=== PATIENT | male | born 1945 | race Caucasian/White ===

== ENCOUNTER 2024-01-01 16:31 | Observation (INO) | payer MEDICARE, SELFPAY ==
--- NOTE | ~2024-01-01 | XR_ITS ---
XR chest 1V portable Ordering provider: Shivani Parra APRN History: 78 years Male with . weakness, blood in stool, hx lung cx with mets . Comparison: None. FINDINGS: MEDIASTINUM: The cardiac silhouette is not enlarged. Postoperative changes in the mediastinum. Promin ent both [place]. LUNGS: No effusions or pneumothorax. Opacification and the left upper lobe area suggestive of pneumon ia. Atelectasis is not excluded. Clinical correlation advised. Follow-up to resolution is advised. OTHER: No free air under the diaphragm. IMPRESSION: Left upper lobe pneumonia. Follow-up to resolution advised to exclude underlying nodules. Reviewed, dictated and finalized at location A. IMPRESSION: Left upper lobe pneumonia. Follow-up to resolution advised to exclude underlyin g nodules.
[2024-01-01 16:37] VITALS: BP 67/41; PULSE 72; RESP 16; TEMP 36.7; O2SAT 94
--- NOTE | 2024-01-01 16:48 | ECG_ITS ---
Test Date: 2024-01-01 16:56:46 Measurements Intervals [place] Rate: 90 P: 66 NC: 170 QRS: 105 QRSD: 106 T: 54 QT: 385 QTc: 472 Interpretive Statements SINUS RHYTHM RIGHT AXIS DEVIATION MINIMAL Q WAVES- INFERIOR LEADS BASELINE ARTIFACT- I, II, III, AVR, AVL, AVF, V1-V6 BORDERLINE ECG No previous ECG available for comparison Electronically Signed On 01-01-2024 19:27:02 CDT by Alfred Teran D.O.
[2024-01-01 17:17] LABS: Basophils Absolute Auto 0.1 K/mm3 (0.0-0.1); Basophils Percent Auto 0.5 % (0.2-1.2); Eosinophils Absolute Auto 0.2 K/mm3 (0-0.3); Eosinophils Percent Auto 2.2 % (0-4.4); Hematocrit 29.5 % (42.0-52.0); Hemoglobin 9.1 g/dL (14.0-18.0); Immature Granulocyte Absolute 0.12 K/mm3 (0.00-0.031); Immature Granulocyte Percent A 1.1 % (0-0.5); Lymphocytes Absolute Auto 0.61 K/mm3 (0.9-3.2); Lymphocytes Percent Auto 5.7 % (18.3-44.2); Mean Corpuscular HGB Conc 30.8 g/dl (32-36); Mean Corpuscular Hemoglobin 28.3 pg (26-34); Mean Corpuscular Volume 91.9 fl (80-100); Mean Platelet Volume 9.8 fl (7.4-10.4); Monocytes Absolute Auto 0.6 K/mm3 (0.1-0.6); Monocytes Percent Auto 5.9 % (2.6-8.5); Neutrophils Percent Auto 84.6 % (45.5-73.1); Platelet Count Result 258 k/mm3 (150-375); Red Blood Count 3.21 M/mm3 (4.6-6.20); Red Cell Distribution Width 16.7 % (11.5-14.5); White Blood Count 10.6 K/mm3 (4.5-10.0)
[2024-01-01] MEDS: SODIUM CHLORIDE 0.9% IV 1,000 ML 999 ML IV CONT ×2 (17:31→18:20)
[2024-01-01 17:32] LABS: Alanine Aminotransferase 29 U/L (6-50); Alkaline Phosphatase 163 U/L (38-126); Anion Gap 17 mmol/L (4-12); Aspartate Amino Transferase 44 U/L (17-59); Bilirubin,Total 1.2 mg/dL (0.2-1.3); Blood Urea Nitrogen 35 mg/dL (9-20); Calcium 8.7 mg/dL (8.4-10.2); Carbon Dioxide 17 mmol/L (22-30); Chloride 99 mmol/L (98-107); Estimated CRCL calculation 22 ml/min; Estimated Glomerular Filt Rate 25; Glucose 155 mg/dL (65-110); Potassium 4.2 mmol/L (3.4-5.0); Sodium 133 mmol/L (137-145)
--- NOTE | 2024-01-01 18:07 | ED.GENADULT ---
HPI - General Adult General Chief complaint: Weakness Stated complaint: gen. weakness, dark stools Time Seen by Provider: 01/01/24 16:57 History of Present Illness HPI narrative: Patient is a 78-year-old male who presents to the ER with weakness. Patient has known metastatic lung cancer to the brain. He has a pathologic fracture of the left humeral head that has not healed. He was initially diagnosed in [place] in September when he had a fall. He recently flew back in November after receiving immunotherapy treatments. After arriving in [place] immediately went to [facility] from the airport because he had a nephrostomy tube in and. Nephric hematoma as well as an obstructing kidney stone. Patient was recently [facility] after discharge. Patient reports chronic anemia with a hemoglobin around 8. He has not been able to have chemotherapy treatments/immunotherapy treatments due to persistent illness. He did have 1 brain tumor excised and then was receiving targeted radiation to 2 other tumors. Patient currently lives at home with his girlfriend. His children live in [place]. Patient does report that he has had some darker stools than typical today. Related Data Home Medications Medication Instructions Recorded Confirmed amlodipine 5 mg tablet 5 mg PO DAILY 12/20/23 12/20/23 aspirin 81 mg chewable tablet 81 mg PO DAILY 12/20/23 12/20/23 atorvastatin 40 mg tablet 40 mg PO DAILY 12/20/23 12/20/23 carvedilol 12.5 mg tablet (Coreg) 12.5 mg PO BIDWM 12/20/23 12/21/23 dapagliflozin propanediol 10 mg 10 mg PO DAILY 12/20/23 12/20/23 tablet ferrous sulfate 325 mg (65 mg 325 mg PO BID 12/20/23 12/20/23 iron) tablet loperamide 2 mg capsule 2 mg PO QID PRN Diarrhea 12/20/23 12/20/23 miconazole nitrate 2 % topical 1 applic topical BID 12/20/23 12/20/23 powder (Antifungal (miconazole)) acetaminophen 325 mg tablet 650 mg PO Q4H PRN Pain, headaches 12/21/23 12/21/23 or fever Allergies Allergy/AdvReac Type Severity Reaction Status Date / Time No Known Allergies Allergy Verified 01/01/24 16:36 Review of Systems Review of Systems: All systems reviewed & are unremarkable except as noted in HPI and below PMFSH Past Medical History Medical History (Updated 01/01/24 @ 18:56 by Raghav Jones MD) A-fib Bilateral nephrolithiasis Cancer cachexia CKD (chronic kidney disease) stage 3, GFR 30-59 ml/min Impaired mobility and ADLs NSCLC metastatic to bone NSCLC metastatic to brain Recurrent UTI Type 2 diabetes mellitus Social History Social History Smoking packs per day: 1 Smoking cigarettes per day: 20.0 Years smoked: 50 Smoking pack-years: 50.00 Smoking status: Former smoker Tobacco type: cigarettes Second hand tobacco smoke exposure: No Smoking end date: 10/02/23 Alcohol intake: former Substance use: never Do You Feel Safe in your Home?: Yes Lack of Transportation: No Lack of Food: Never True Current Housing: I Have Housing Concerned About Future Housing: No Difficulty Paying Gas/Electric Bills: No Difficulty Paying for Meds: No Currently Unemployed: No Education: High School Diploma/GED Difficulty w/ Childcare or Family Care: No Living arrangements: with family Occupation/Education: retired Gender identity (if verbalized by the patient): Male Sexual Orientation (if Verbalized by the Patient): Straight or Heterosexual Spiritual care concerns: Yes (church) Agree to blood products: Yes Exam Narrative: GENERAL: Chronically ill-appearing, malnourished, and in no acute distress. HEAD: Normocephalic, atraumatic. EYES: PERRL and EOMI. ENT: Mucous membranes moist. CHEST: Clear to auscultation. No respiratory distress. HEART: Regular rate and rhythm. Normal peripheral pulses. ABDOMEN: Soft, nontender, nondistended. Faintly Hemoccult positive stool without gross blood. EXTREMITIES: Normal range o
[2024-01-01 18:20] VITALS: BP 85/45; PULSE 88; RESP 16; O2SAT 100
--- NOTE | 2024-01-01 19:12 | PC.NURSE ---
pt unable to urinate at this time.
--- NOTE | 2024-01-01 20:09 | PC.NURSE ---
1953: Spoke with ER nurse giving report for this patient. Questioned collection of urinalysis, as specimen has not been collected. Original order placed at 1648. Nurse states unaware what previous nurse had completed and referred to several other orders being discontinued. Per current orders urinalysis is still active. ER nurse to speak with ER physician to verify status and/or need for urinalysis. At this time patient is to undergo comfort care transitioning to hospice tomorrow.
--- NOTE | 2024-01-01 20:20 | ADMGEN ---
This patient, Jason White, was admitted to Medical Room 341-01. Patient/family oriented to hospital policies and general routines including ID bracelet, bed and alarms, visiting hours, pain management, procedures, bathroom and other care routines, personal items, smoking policy, room service/diet, and visiting hours. Information on how to activate the Rapid Response Team has been discussed. Patient/Family are encouraged to report perceived risks to care and to ask questions if they do not understand what they are told or what they should do.
--- NOTE | 2024-01-01 20:46 | PM.IMHP ---
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 He lives with his partner who he presents with to [place] ER today. Chief complaint of weakness. 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 Has taken 3 doses already. ER evaluation demonstrated blood pressure 67/41 improving to 85/45 after 2 L normal saline bolus. White blood cell count 10.6, hemoglobin 9.1, serum creatinine 2.5, last 1.1 on 12/21/2023. He also complained of a dry cough for a few days. Chest x-ray demonstrating left upper lobe pneumonia. The patient's child was on speaker phone who lives in [place], discussion held with the patient, his girlfriend present and ER physician Dr. Jones. Patient requested comfort measures except for completing a 7 day course of ciprofloxacin for UTI and fluids throughout the night. He wishes to return home with hospice care. The global technical writer confirmed these wishes with the patient and girlfriend present. Review of Systems Review of Systems: All systems reviewed & are unremarkable except as noted in HPI and below (Subjective) PMFSH Past Medical History Medical History (Updated 01/01/24 @ 20:53 by Veronika Pop MD) A-fib Bilateral nephrolithiasis Cancer cachexia CKD (chronic kidney disease) stage 3, GFR 30-59 ml/min Impaired mobility and ADLs NSCLC metastatic to bone NSCLC metastatic to brain Recurrent UTI Type 2 diabetes mellitus Social History Social History Smoking packs per day: 1 Smoking cigarettes per day: 20.0 Years smoked: 50 Smoking pack-years: 50.00 Smoking status: Former smoker Tobacco type: cigarettes Second hand tobacco smoke exposure: No Smoking end date: 10/02/23 Alcohol intake: former Substance use: never Do You Feel Safe in your Home?: Yes Lack of Transportation: No Lack of Food: Never True Current Housing: I Have Housing Concerned About Future Housing: No Difficulty Paying Gas/Electric Bills: No Difficulty Paying for Meds: No Currently Unemployed: No Education: High School Diploma/GED Difficulty w/ Childcare or Family Care: No Living arrangements: with family Occupation/Education: retired Gender identity (if verbalized by the patient): Male Sexual Orientation (if Verbalized by the Patient): Straight or Heterosexual Spiritual care concerns: Yes (holiness) Agree to blood products: Yes Meds Home Medications and Allergies Home Medications Medication Instructions Recorded Confirmed Type amlodipine 5 mg tablet 5 mg PO DAILY 12/20/23 12/20/23 History aspirin 81 mg chewable tablet 81 mg PO DAILY 12/20/23 12/20/23 History atorvastatin 40 mg tablet 40 mg PO DAILY 12/20/23 12/20/23 History carvedilol 12.5 mg tablet (Coreg) 12.5 mg PO BIDWM 12/20/23 12/21/23 History dapagliflozin propanediol 10 mg 10 mg PO DAILY 12/20/23 12/20/23 History tablet ferrous sulfate 325 mg (65 mg 325 mg PO BID 12/20/23 12/20/23 History iron) tablet loperamide 2 mg capsule 2 mg PO QID PRN Diarrhea 12/20/23 12/20/23 History miconazole nitrate 2 % topical 1 applic topical BID 12/20/23 12/20/23 History powder (Antifungal (miconazole)) acetaminophen 325 mg tablet 650 mg PO Q4H PRN Pain, headaches 12/21/23 12/21/23 History or fever mirtazapine 15 mg tablet (Remeron) 7.5 mg PO HS 30 days #15 tabs 12/28/23 Rx mirabegron 25 mg tablet,extended 25 mg PO DAILY 30 days #30 tabs 12/29/23 Rx release 24 hr (Myrbetriq) potassium chloride 20 mEq 20 meq PO DAILY 30 days #30 tabs 12/29/23 Rx tablet,extended release tamsulosin 0.4 mg capsule (Flomax) 0.4 mg PO QPM #30 caps 12/29/23 Rx Allergies Allergy/AdvReac Type Severity Reaction Sta
[2024-01-01 20:56] LABS: Add Urine Microscopic? YES; Appearance Urine Turbid (Clear); Bacteria Urine 1+ /hpf; Bilirubin Urine 1+ (Negative); Blood Urine 3+ (Negative); Color Urine Dark Yellow (Yellow); Glucose Urine UA Trace mg/dL (Negative); Ketones Urine Negative (Negative); Leukocyte Esterase Ur 2+ LEU/UL (Negative); Need Manual Microscopic Reviewed; Nitrate Urine Negative (Negative); Non Pathogenic Casts >20; Protein Urine 4+ mg/dL (Negative); RBC Urine >100 /hpf (0-2); Specific Grav Ur 1.021 (1.001-1.035); Squamous Epithelial Cell Urine Moderate /hpf (Few); WBC Urine >100 /hpf (0-3); pH Urine 5.5 (5.0-9.0)
[2024-01-01 21:02] LABS: Glucose Point of Care 124 mg/dl (65-105)
[2024-01-01] MEDS: CIPROFLOXACIN 500 MG TAB PO (21:04)
[2024-01-01] MEDS: ONDANSETRON INJ 4 MG/2 ML VIAL IV PUSH (21:04)
[2024-01-01] MEDS: HYDROcodone/acetaminophen (*CRX) 5-325 MG TABLET 1 TAB PO (21:04)
[2024-01-01] MEDS: SODIUM CHLORIDE 0.9% IV 1,000 ML 125 ML IV CONT (21:05)
[2024-01-01 21:41] VITALS: BP 88/55; PULSE 94; RESP 18; TEMP 36.8; O2SAT 99
[2024-01-02 05:47] VITALS: BP 92/54; PULSE 75; RESP 16; TEMP 36.5; O2SAT 100
--- NOTE | 2024-01-02 06:30 | PCCCNOTE ---
Called to Ed for hospice referral. Pt is alert and oriented. After speaking with pt and significant other Melia Leong [phone] a hospice referral was made to [facility]. Contact made hospice will contact pt and Melia to schedule a meeting. 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
[2024-01-02] MEDS: SODIUM CHLORIDE 0.9% IV 1,000 ML 125 ML IV CONT ×3 (06:32→20:11)
[2024-01-02 08:00] VITALS: O2SAT 100
[2024-01-02 09:01] LABS: Glucose Point of Care 89 mg/dl (65-105)
--- NOTE | 2024-01-02 10:40 | PM.IMPN ---
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 He lives with his partner who he presents with to [place] ER today. Chief complaint of weakness. 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 Has taken 3 doses already. ER evaluation demonstrated blood pressure 67/41 improving to 85/45 after 2 L normal saline bolus. White blood cell count 10.6, hemoglobin 9.1, serum creatinine 2.5, last 1.1 on 12/21/2023. He also complained of a dry cough for a few days. Chest x-ray demonstrating left upper lobe pneumonia. The patient's child was on speaker phone who lives in [place], discussion held with the patient, his girlfriend present and ER physician Dr. Jones. Patient requested comfort measures except for completing a 7 day course of ciprofloxacin for UTI and fluids throughout the night. He wishes to return home with hospice care. The flex o writer operator confirmed these wishes with the patient and girlfriend present. ----- Patient is admitted for acute urinary tract infection with BRAD and CKD along with sepsis and left upper lobe pneumonia in the setting metastatic lung cancer. Per the patient's request, we will administer fluids throughout the night and restart his ciprofloxacin. He has received 3 doses in the outpatient setting. Otherwise, comfort care orders. No pressors, DNR. Care coordination consulted to help arrange hospice care. 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 He lives with his partner who he presents with to [place] ER today. Chief complaint of weakness. 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 Has taken 3 doses already. ER evaluation demonstrated blood pressure 67/41 improving to 85/45 after 2 L normal saline bolus. White blood cell count 10.6, hemoglobin 9.1, serum creatinine 2.5, last 1.1 on 12/21/2023. He also complained of a dry cough for a few days. Chest x-ray demonstrating left upper lobe pneumonia. The patient's child was on speaker phone who lives in [place], discussion held with the patient, his girlfriend present and ER physician Dr. Jones. Patient requested comfort measures except for completing a 7 day course of ciprofloxacin for UTI and fluids throughout the night. He wishes to return home with hospice care. The flex o writer operator confirmed these wishes with the patient and girlfriend present. 01/01- assuming care- pt is seen and examined. Care coordination as contacted per admitting MD for hospice arrangement. Hospice accepted him but need early am discharge. We will continue fluids and antibiotics overnight and anticipate early discharge Review of Systems Review of Systems: All systems reviewed & are unremarkable except as noted in HPI and below (Subjective) Exam Const: General: comfortable and no acute distress Eyes: Pupils: Equal, round and reactive pupils pr
[2024-01-02 12:09] LABS: Glucose Point of Care 129 mg/dl (65-105)
[2024-01-02 14:00] VITALS: BP 101/56; PULSE 86; RESP 20; TEMP 36.8; O2SAT 100
[2024-01-02 17:06] LABS: Glucose Point of Care 113 mg/dl (65-105)
[2024-01-02] MEDS: CIPROFLOXACIN 500 MG TAB PO (20:11)
[2024-01-02 22:00] VITALS: BP 131/64; PULSE 81; RESP 20; TEMP 36.5; O2SAT 100
[2024-01-03 06:00] VITALS: BP 128/62; PULSE 65; RESP 18; TEMP 36.1; O2SAT 96
[2024-01-03 06:17] LABS: Glucose Point of Care 118 mg/dl (65-105)
[2024-01-03] MEDS: SODIUM CHLORIDE 0.9% IV 1,000 ML 125 ML IV CONT (06:18)
--- NOTE | 2024-01-03 07:13 | PM.DS ---
DS: Admitting Diagnosis Discharge Date 01/02 Admitting Diagnosis weakness DS: Discharge Diagnosis Discharge Diagnosis (1) BRAD (acute kidney injury): Code(s): N17.9 - Acute kidney failure, unspecified Status: Acute (2) UTI (urinary tract infection): Code(s): N39.0 - Urinary tract infection, site not specified Status: Acute (3) Sepsis: Code(s): A41.9 - Sepsis, unspecified organism Status: Acute (4) Metastatic lung cancer (metastasis from lung to other site): Code(s): C34.90 - Malignant neoplasm of unspecified part of unspecified bronchus or lung Status: Acute Plan This is a pleasant 78-year-old male with 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 He lives with his partner who he presents with to [place] ER today. Chief complaint of weakness. 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 Has taken 3 doses already. ER evaluation demonstrated blood pressure 67/41 improving to 85/45 after 2 L normal saline bolus. White blood cell count 10.6, hemoglobin 9.1, serum creatinine 2.5, last 1.1 on 12/21/2023. He also complained of a dry cough for a few days. Chest x-ray demonstrating left upper lobe pneumonia. The patient's child was on speaker phone who lives in [place], discussion held with the patient, his girlfriend present and ER physician Dr. Jones. Patient requested comfort measures except for completing a 7 day course of ciprofloxacin for UTI and fluids throughout the night. He wishes to return home with hospice care. The telegraphic typewriter operator confirmed these wishes with the patient and girlfriend present. ----- Patient is admitted for acute urinary tract infection with BRAD and CKD along with sepsis and left upper lobe pneumonia in the setting metastatic lung cancer. Per the patient's request, we will administer fluids throughout the night and restart his ciprofloxacin. He has received 3 doses in the outpatient setting. Otherwise, comfort care orders. No pressors, DNR. Care coordination consulted to help arrange hospice care. 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 He lives with his partner who he presents with to [place] ER today. Chief complaint of weakness. 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 Has taken 3 doses already. ER evaluation demonstrated blood pressure 67/41 improving to 85/45 after 2 L normal saline bolus. White blood cell count 10.6, hemoglobin 9.1, serum creatinine 2.5, last 1.1 on 12/21/2023. He also complained of a dry cough for a few days. Chest x-ray demonstrating left upper lobe pneumonia. The patient's child was on speaker phone who lives in [place], discussion held with the patient, his girlfriend present and ER physician Dr. Jones. Patient requested comfort measures except for completing a 7 day course of ciprofloxacin for UTI and fluids throughout the night. He wishes to return home with hospice care. The telegraphic typewriter operator confirmed these wishes with the patient and girlfriend present. 01/01- assuming care- pt is seen and examined. Care coordination as contacted per admitting MD for hospice arrangement. Hospice accepted him but need early am discharge. We will continue fluids and antibiotics overnight and anticipate early discharge Status at Discharge Functional status at discharge: bed bound Overall status at discharge: other (discharge to hospice) Time Spent with Patient Time attestation: Total time spent providing and/or coordinating discharge services: Time spent: Greater
[2024-01-03 08:33] LABS: Glucose Point of Care 104 mg/dl (65-105)
[2024-01-03 11:49] LABS: Glucose Point of Care 130 mg/dl (65-105)
== END 2024-01-03 14:34 | disposition hospice, home (50) ==
LOC: ANHED 18:56 → ANH3MED 01-02 10:32
PROVIDERS: Registered Nurse; Admitting Provider General Practice; Emergency Provider Emergency Medicine; PCP Internal Medicine; Visit Provider General Practice
DX: A41.9 Sepsis, unspecified organism (principal); N17.9 Acute kidney failure, unspecified; N39.0 Urinary tract infection, site not specified; C34.90 Malignant neoplasm of unspecified part of unspecified bronchus or lung; C79.31 Secondary malignant neoplasm of brain; C79.51 Secondary malignant neoplasm of bone; J18.9 Pneumonia, unspecified organism; R19.5 Other fecal abnormalities; R53.1 Weakness; D64.9 Anemia, unspecified; I48.91 Unspecified atrial fibrillation; E11.22 Type 2 diabetes mellitus with diabetic chronic kidney disease; N18.30 Chronic kidney disease, stage 3 unspecified; Z87.891 Personal history of nicotine dependence; Z79.82 Long term (current) use of aspirin; Z79.84 Long term (current) use of oral hypoglycemic drugs; Z66 Do not resuscitate
CPT/HCPCS: 36415; 71045; 80053; 81001; 82948; 85025; 87086; 87088; 93005; 96361; 96374; 99285; A9270; G0378; J2405; J7030